=== PATIENT | female | born 1935 | race Hispanic/Latino ===

== ENCOUNTER → 2020-01-03 | Outpatient (CLI) | payer MEDICARE ==
--- NOTE | 2020-01-03 14:41 | Diagnostic Imaging Report ---
TECHNIQUE: Magnetic resonance imaging of the RIGHT SHOULDER was performed WITHOUT injected contrast. COMPARISON: None available. HISTORY: Right shoulder pain, right shoulder rotator cuff tear FINDINGS: MUSCLES AND TENDONS: Rotator Cuff: Tendons: Supraspinatus: High-grade partial-thickness articular sided tearing which is near full thickness along the anterior fibers. Retraction of torn undersurface fibers to the mid humeral head. Infraspinatus: Intact Teres Minor: Intact Subscapularis: Intact Muscles: Mild fatty infiltration of the supraspinatus, infraspinatus, and teres minor musculature. Biceps Tendon: Tendinosis along the intra-articular portion of the long head of the biceps tendon with questionable partial tearing. GLENOHUMERAL JOINT: Glenoid Labrum: Degenerative tearing and attenuation of the superior and posterior superior labrum. Articular Cartilage: Cartilage thinning along the inferior aspect of the glenoid and humeral head. No focal full-thickness defects. AC JOINT AND ACROMION: Mild hypertrophic degenerative changes of the acromioclavicular joint. Small subacromial osseous spurring. Small amount of fluid in the subacromial/subdeltoid bursa. BONE: No fractures or acute osseous abnormality. No infiltrative bone marrow signal replacing abnormality. Subchondral cystic changes along the posterior aspect of the greater tuberosity. SOFT TISSUES: Small amount of fluid in the subcoracoid bursa. IMPRESSION: 1. High-grade partial-thickness articular sided tear of the supraspinatus tendon which is near full thickness along the anterior fibers. 2. Tendinosis along the intra-articular long head of the biceps tendon with questionable partial tear. 3. Degenerative tearing and attenuation of the superior and posterosuperior labrum. 4. Mild hypertrophic degenerative changes of the acromioclavicular joint. Associated subacromial/subdeltoid bursitis. Signed by: Dr. Gigi Mary M.D. on 01/03/2020 2:37 PM
== END ==
LOC: MRI 11:02
PROVIDERS: ATTEND Specialist
DX: M75.101 Unspecified rotator cuff tear or rupture of right shoulder, not specified as traumatic (principal)